=== PATIENT | female | born 1985 | race Hispanic/Latino ===

== ENCOUNTER 2018-09-26 11:04 | Emergency (ER) | payer OTHER ==
[2018-09-26 11:59] LABS: #Basophils 0.1 thou/uL (0.0-0.2); #Eosinphils 0.3 thou/uL (0.0-0.7); #Lymphocytes 2.6 thou/uL (1.20-3.40); #Monocytes 0.4 thou/uL (0.11-0.59); #Neutrophils 4.5 thou/uL (1.40-6.50); %Basophils 1.1 % (0.0-1.0); %Eosinophils 3.8 % (0.0-10.0); %Lymphocytes 33.2 % (21.0-51.0); %Monocytes 5.1 % (0.0-10.0); %Neutrophils 56.9 % (42.0-75.0); Hemoglobin 14.2 g/dL (12.0-16.0); Mean Corpuscular HGB CONC 33.7 g/dL (32.0-36.0); Mean Corpuscular Hemoglobin 28.8 pg (27.0-31.0); Mean Corpuscular Volume 85.5 fL (78.0-98.0); Mean Platelet Volume 8.5 fL (7.4-10.4); Platelet Count 325 thou/uL (130-400); RBC Distribution Width 14.6 % (11.5-14.5); Red Blood Cell (RBC) Count 4.92 mill/uL (4.20-5.40)
[2018-09-26 12:22] LABS: ALT (SGPT) 40 U/L (8-55); AST (SGOT) 18 U/L (5-34); Albumin 4.8 g/dL (3.5-5.0); Alkaline Phosphatase 57 U/L (40-150); Anion Gap 14 mmol/L (10-20); BUN (Urea Nitrogen) 12 mg/dL (7.0-18.7); Bilirubin, Total 0.4 mg/dL (0.2-1.2); Calc. Creatinine Clearance 0 mL/min (70-130); Calcium 9.6 mg/dL (7.8-10.44); Carbon Dioxide 21 mmol/L (22-29); Chloride 108 mmol/L (98-107); Estimated GFR-MDRD Greater than 90; Globulin 3.1 g/dL (2.4-3.5); Glucose 94 mg/dL (70-105); Potassium 3.8 mmol/L (3.5-5.1); Protein, Total 7.9 g/dL (6.0-8.3); Sodium 139 mmol/L (136-145)
[2018-09-26 13:23] LABS: Bilirubin Negative (Negative); Blood, Urine Moderate (Negative); Clarity CLOUDY (Clear); Glucose, Urine (Dipstick) Negative (Negative); Leukocyte Small (Negative); Nitrite Negative (Negative); Protein, Urine (Dipstick) Negative (Neg-Trace); Specific Gravity, Urine 1.025 (1.002-1.036); Urobilinogen 0.2 mg/dL (0.2-1.0)
[2018-09-26 13:26] LABS: Bacteria/HPF Rare-Few HPF (None Seen); Hyaline Casts/LPF 0-3 HYALINE CAST LPF (0-3 Hyaline); Pathc Cast-AUWi Flag 0.29 (0-2.49)
[2018-09-26 13:42] LABS: Renal Epithelial 0-3 HPF (0-3); Transitional Epithelial 0-3 HPF (0-3)
[2018-09-26] MEDS ORDERED: Morphine 4 MG/ML VIAL ONE (14:40)
[2018-09-26] MEDS ORDERED: Ondansetron ODT 4 MG TAB ONE (14:40)
[2018-09-26] MEDS ORDERED: Iopamidol 370 76% 100 ML VIAL ONE (15:06)
[2018-09-26] MEDS ORDERED: diphenhydrAMINE 50 MG/ML VIAL ONE (15:15)
--- NOTE | 2018-09-26 15:48 | CT ---
CT ABDOMEN AND PELVIS WITH IV CONTRAST: HISTORY: Abdominal pain. FINDINGS: The lung bases are clear. The gallbladder is surgically absent. There is a small cyst at the latera l cortex of the left kidney. Other solid organs are within normal limits. No enlarged lymph nodes o r free fluid are apparent. Lack of oral contrast limits evaluation of the bowel. No evidence of obstruction or inflammation. A n appendix is not well visualized. 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 There is soft tissue stranding of the subcutaneous tissue at each gluteal level may r epresent chronic inflammation. IMPRESSION: Chronic type findings are as detailed above. No acute abnormalities are demonstrated to explain abdo james pain. POS: [facility]
== END 2018-09-26 17:22 | disposition home or self-care (01) ==
LOC: ERS 11:04
DX: R10.12 Left upper quadrant pain (principal); G43.909 Migraine, unspecified, not intractable, without status migrainosus; E11.9 Type 2 diabetes mellitus without complications; F41.9 Anxiety disorder, unspecified; F32.9 Major depressive disorder, single episode, unspecified; Z79.899 Other long term (current) drug therapy; Z79.84 Long term (current) use of oral hypoglycemic drugs
CPT/HCPCS: 36415; 74177; 80053; 81003; 81015; 83690; 85025; 87086; 96361; 96372; 96374; 96375; J1200; J2270; Q0162

== ENCOUNTER 2018-12-14 14:18 | Emergency (ER) | payer OTHER ==
[~2018-12-14 14:18] MED LIST: ISOVUE-370 76%-LOCM 1 ML ONE
[2018-12-14 15:37] LABS: Bilirubin Negative (Negative); Blood, Urine Negative (Negative); Clarity CLOUDY (Clear); Glucose, Urine (Dipstick) Negative (Negative); Leukocyte Negative (Negative); Nitrite Negative (Negative); Protein, Urine (Dipstick) Negative (Neg-Trace); Specific Gravity, Urine 1.013 (1.002-1.036); Urobilinogen 0.2 mg/dL (0.2-1.0); pH, Urine 7.5 (5.0-9.0)
[2018-12-14 15:38] LABS: Pregnancy Test - Urine (BHCG) Negative (Negative); Pregu Control Background? CLEAR/WHITE (CLR/WHITE); Pregu Control Bar Appear? YES (CONTROL BAR); Specific Gravity 1.013 (1.002-1.036)
[2018-12-14 16:25] LABS: #Basophils 0.1 thou/uL (0.0-0.2); #Eosinphils 0.1 thou/uL (0.0-0.7); #Lymphocytes 2.5 thou/uL (1.20-3.40); #Monocytes 0.4 thou/uL (0.11-0.59); #Neutrophils 2.6 thou/uL (1.40-6.50); %Basophils 1.3 % (0.0-1.0); %Eosinophils 2.5 % (0.0-10.0); %Lymphocytes 44.1 % (21.0-51.0); %Monocytes 6.4 % (0.0-10.0); %Neutrophils 45.8 % (42.0-75.0); Hemoglobin 13.7 g/dL (12.0-16.0); Mean Corpuscular Hemoglobin 31.4 pg (27.0-31.0); Mean Corpuscular Volume 92.5 fL (78.0-98.0); Mean Platelet Volume 8.3 fL (7.4-10.4); Platelet Count 298 thou/uL (130-400); RBC Distribution Width 11.5 % (11.5-14.5); Red Blood Cell (RBC) Count 4.36 mill/uL (4.20-5.40); White Blood Cell (WBC) Count 5.7 thou/uL (4.8-10.8)
[2018-12-14 16:46] LABS: ALT (SGPT) 33 U/L (8-55); AST (SGOT) 13 U/L (5-34); Albumin 4.5 g/dL (3.5-5.0); Alkaline Phosphatase 64 U/L (40-150); Anion Gap 13 mmol/L (10-20); BUN (Urea Nitrogen) 11 mg/dL (7.0-18.7); Bilirubin, Total 0.3 mg/dL (0.2-1.2); Calc. Creatinine Clearance 0 mL/min (70-130); Calcium 9.3 mg/dL (7.8-10.44); Carbon Dioxide 18 mmol/L (22-29); Chloride 109 mmol/L (98-107); Estimated GFR-MDRD Greater than 90; Globulin 2.9 g/dL (2.4-3.5); Glucose 91 mg/dL (70-105); Lipase 37 U/L (8-78); Potassium 3.8 mmol/L (3.5-5.1); Protein, Total 7.4 g/dL (6.0-8.3); Sodium 136 mmol/L (136-145)
[2018-12-14] MEDS ORDERED: Mag-Al 1200 mg/1200 mg/30 ML UDCUP ONE (17:19)
[2018-12-14] MEDS ORDERED: Lidocaine Viscous Sol 2% 15 ml UD Cup ONE (17:19)
[2018-12-14] MEDS ORDERED: Morphine 4 MG/ML VIAL ONE (18:43)
[2018-12-14] MEDS ORDERED: Ondansetron PF 4 MG/2 ML Vial ONE ×2 (18:43→18:50)
--- NOTE | 2018-12-14 20:23 | CT ---
CT ABDOMEN AND PELVIS 12/14/18 COMPARISON: 09/26/18 HISTORY: Abdominal pain. TECHNIQUE: Axial CT imaging obtained at 5 mm intervals from lung bases through the pubic symphysis with IV contr ast. Coronal reformatted imaging obtained. FINDINGS: The imaged lung bases are unremarkable. There is no free intraperitoneal air. There is a small fat containing umbilical hernia. Cholecystect arabella clips are present. Hepatic parenchymal is hypodense suggesting steatosis. The spleen, pancreas, a drenal glands, and kidneys are unremarkable. No evidence for bowel inflammatory change or obstruction seen. . Urinary bladder is mildly distended. There is lymphadenopathy see in the abdomen or pelvis. There is a low density structure associated with the left ovary suggesting a small cyst or dominant f ollicle measuring approximately 1.5 cm. Review of the osseous structures demonstrates no lytic or blastic bone lesion. There are bilateral L5 pars defects. IMPRESSION: 1.5 cm low density lesion in left ovary. No free intraperitoneal air or evidence of bowel obstruction . POS: [facility]
== END 2018-12-14 20:21 | disposition home or self-care (01) ==
LOC: ERS 14:18
DX: K29.70 Gastritis, unspecified, without bleeding (principal); E11.9 Type 2 diabetes mellitus without complications; G43.909 Migraine, unspecified, not intractable, without status migrainosus; F41.9 Anxiety disorder, unspecified; F32.9 Major depressive disorder, single episode, unspecified; Z79.84 Long term (current) use of oral hypoglycemic drugs; Z79.899 Other long term (current) drug therapy
CPT/HCPCS: 36415; 74177; 80053; 81003; 81025; 83690; 85025; 96361; 96374; 96375; J2270; J2405

== ENCOUNTER 2018-12-20 06:48 | Day surgery (SDC) | payer OTHER ==
[2018-12-20] MEDS ORDERED: Morphine 2 MG/ML SYRINGE ONE (10:34)
[2018-12-20] MEDS ORDERED: diphenhydrAMINE 50 MG/ML VIAL ONE (10:52)
[2018-12-20] MEDS ORDERED: diphenhydrAMINE 25 MG CAP ONE (10:52)
[2018-12-20] MEDS ORDERED: Acetaminophen 500 MG TAB ONE (12:55)
--- NOTE | 2018-12-20 14:03 | OP ---
DATE OF PROCEDURE: 12/20/2018 PROCEDURES PERFORMED: Esophagogastroduodenoscopy with biopsy and colonoscopy. PREOPERATIVE DIAGNOSES: Left upper quadrant pain and hematochezia. DESCRIPTION OF PROCEDURE: Informed consent was obtained from the patient. She was sedated with total intravenous anesthesia. A bite block was placed and the endoscope was advanced easily to the second portion of the duodenum and retroflexion was performed in the stomach. The esophagus was normal. The GE junction was normal. There was an 8 mm ulcer in the antrum of the stomach with a clean white base. There was a 4 mm ulcer in the antrum and in the stomach as well. Biopsies were obtained from the antrum and body to rule out H. pylori. Retroflexed views in the stomach were normal. The pylorus and first and second portions of the duodenum were normal. The patient was turned around. Rectal exam was performed, except for some small external hemorrhoids. The colonoscope was advanced to the terminal ileum without difficulty. The mucosa of the terminal ileum was normal. The ileocecal valve and appendiceal orifice were clearly identified. The preparation quality was good overall. A fair amount of opaque liquid had to be suctioned and irrigated. The colonic mucosa was normal throughout. Retroflexed views in the rectum were normal. IMPRESSION: 1. Gastric antrum ulcers measuring 8 mm and 4 mm. Biopsies taken to rule out Helicobacter pylori. 2. Otherwise normal esophagogastroduodenoscopy. 3. Normal colonoscopy to the terminal ileum. RECOMMENDATIONS: 1. Await histopathology. Treat H. pylori if positive. 2. Avoid NSAIDs. She has been taking ibuprofen for chronic pain. Acetaminophen is okay. 3. Increase the omeprazole from 20 mg twice daily to 40 mg twice daily. 4. Follow up in GI clinic in 6 weeks. Job ID: [id number]
[2018-12-20] MEDS ORDERED: PROPOFOL 200 MG/20 ML VIAL ONE (15:06)
[2018-12-20] MEDS ORDERED: Ondansetron PF 4 MG/2 ML Vial ONE (15:06)
== END 2018-12-20 14:15 ==
LOC: SDC 06:48
PROVIDERS: ATTEND Internal Medicine Gastroenterology
PROC: 0DB78ZX Excision of Stomach, Pylorus, Via Natural or Artificial Opening Endoscopic, Diagnostic (ICD-10-PCS; principal; 2018-12-20)
PROC: 0DJD8ZZ Inspection of Lower Intestinal Tract, Via Natural or Artificial Opening Endoscopic (ICD-10-PCS; principal; 2018-12-20)
DX: K92.1 Melena (principal); K29.50 Unspecified chronic gastritis without bleeding; K25.9 Gastric ulcer, unspecified as acute or chronic, without hemorrhage or perforation; K64.4 Residual hemorrhoidal skin tags; Z79.84 Long term (current) use of oral hypoglycemic drugs; Z79.899 Other long term (current) drug therapy; Z88.0 Allergy status to penicillin
CPT/HCPCS: 88305; 88312; J1200; J2270; J2405; J2704; Q0163

== ENCOUNTER 2020-11-04 08:43 | Outpatient (CLI) | payer OTHER ==
--- NOTE | 2020-11-05 07:12 | ULT ---
THYROID ULTRASOUND INDICATION: Hyperthyroidism; elevated free T4 TECHNIQUE: Grayscale and color Doppler images were obtained of the thyroid gland. COMPARISON: None FINDINGS: Right thyroid lobe: The right thyroid lobe measures 5.7 x 2.2 x 1.8 cm. Thyroid isthmus: The thyroid isthmus measures 0.79 cm. Left thyroid lobe: The left thyroid lobe measures 4.4 x 2.0 x 2.2 cm. IMPRESSION: 1. Enlarged heterogeneous thyroid gland may reflect sequela of a thyroid goiter. No discrete suspicio us focal thyroid lesion identified.
== END 2020-11-04 08:44 | disposition home or self-care (01) ==
LOC: BICULT 08:43
PROVIDERS: ATTEND Family Medicine
DX: R94.6 Abnormal results of thyroid function studies (principal); E04.9 Nontoxic goiter, unspecified
CPT/HCPCS: 76536